=== PATIENT | male | born 1980 | race Caucasian/White ===

== ENCOUNTER 2016-11-15 16:36 | Inpatient (IN) | payer SELFPAY ==
--- NOTE | 2016-11-15 16:58 | Emergency Department Record ---
History of Present Illness - General Chief Complaint: Abdominal Pain Stated Complaint: ABD AND LOWER BACK PAIN Time Seen by Provider: 11/15/16 16:57 Source: Patient Mode of Arrival: Ambulatory Limitations: No limitations - History of Present Illness Initial Comments: The patient is here due to LLQ AP for one day. It started last evening and is a sharp cramping pain that is mainly constant. He felt like if he could have a BM the pain would go away. Today it became worse and now is radiating around to the L flank area. He denies any nausea, vomiting or diarrhea or fever. He denies similar issues in the past. The patient has had 2 hernia repairs in the L groin in the past but these symptoms are not similar. MD Complaint: Abdominal pain Onset/Timin -: Days(s) Location: LLQ Radiation: Back, LLQ Migration to: LLQ, Other Severity: Moderate Quality: Burning, Sharp Consistency: Constant Improves With: Nothing Worsens With: Movement Associated Symptoms: Denies other symptoms - Related Data Home Medications Medication Instructions Recorded Confirmed Last Taken Gabapentin [Gabapentin] 600 mg PO TID 11/15/16 11/15/16 11/15/16 Hydrocodone/Acetaminophen 1 tab PO TID 11/15/16 11/15/16 11/15/16 [Hydrocodon-Acetaminophen 5-325] Pantoprazole Sodium [Protonix] 20 mg PO DAILY 11/15/16 11/15/16 11/15/16 Allergies Allergy/AdvReac Type Severity Reaction Status Date / Time morphine Allergy Intermediate ITCHING Verified 11/15/16 17:22 Penicillins Allergy PT UNSURE Verified 11/15/16 16:48 OF REACTION Travel Screening - Travel/Exposure Within Last 30 Days Have you traveled within the last 30 days?: No Review of Systems Constitutional: Denies: Chills, Fever Eyes: Denies: Eye discharge ENT: Denies: Congestion Respiratory: Denies: Cough, Dyspnea Past Medical History - SOCIAL HISTORY Smoking Status: Current every day smoker Alcohol Use: None Drug Use: None - RESPIRATORY Hx Respiratory Disorders: No - CARDIOVASCULAR Hx Cardio Disorders: No - NEURO Hx Neuro Disorders: No - GI Hx GI Disorders: Yes Hx Reflux: Yes - Hx Genitourinary Disorders: No - ENDOCRINE Hx Endocrine Disorders: No - MUSCULOSKELETAL Hx Musculoskeletal Disorders: Yes Comment:: DDD - PSYCH Hx Psych Problems: No - HEMATOLOGY/ONCOLOGY Hx Hematology/Oncology Disorders: No Family Medical History Any Significant Family History?: Yes Family Hx Comment (NOT TO BE USED IN PLACE OF ITEMS BELOW): Father- DVTs Hx Dementia: Grandparents Hx Heart Disease: Father Physical Exam - General General Appearance: Alert, Oriented x3, Cooperative, No acute distress - Head Head exam: Atraumatic, Normocephalic, Normal inspection - Eye Eye exam: Normal appearance, PERRL - Neck Neck exam: Normal inspection, Full ROM. negative: Tenderness - Respiratory Respiratory exam: Normal lung sounds bilaterally. negative: Respiratory distress - Cardiovascular Cardiovascular Exam: Regular rate, Normal rhythm, Normal heart sounds - GI/Abdominal GI/Abdominal exam: Soft, Tenderness ( Significant LLQ tenderness but no guarding or rebound.). negative: Distended, Guarding, Rigid - exam: Circumcision, Normal inspection. negative: Testicular tenderness - Extremities Extremities exam: Normal inspection, Full ROM, Normal capillary refill. negative: Tenderness Course Vital Signs 11/15/16 16:43 Temperature 98.7 F Pulse Rate 94 H Respiratory 18 Rate Blood Pressure 109/66 Pulse Ox 97 - Reevaluation(s) Reevaluation #1: The patient is doing well at this time. He is still having some pain but feels much better, is very hungry and has no fever. I did discuss the lab and CT results with him and did discuss the Diverticulitis and the need for admission. Due to the possible microperforations I did discuss the case with Dr. Morgan and he believes the patient can stay here at [facility] for IV Abx's and pain medicines due to the fact he is very stable at this time. I then contacted Dr. Lopez and he accepted the patient for admission to [facility] and would like him on Cipro and Flagyl IV. 11/15/16 18:37 11/15/16 18:45 Medical Decision Making - Data Complexity MDM Data: Labs Ordered and/or Reviewed, X-Ray Ordered and/or Reviewed - Lab Data Result diagrams: 11/15/16 17:18 11/15/16 17:18 - Radiology Data Radiology results: Report reviewed (CT: Diverticulitis L Colon at junction between the descending and sigmoid with possible Microperforations medial wall.) Disposition Disposition: Admit Clinical Impression: Diverticulitis Qualifiers: Diverticulitis site: large intestine Diverticulitis bleeding: without bleeding Diverticulitis complication: without perforation or abscess Qualified Code(s): K57.32 - Diverticulitis of large intestine without perforation or abscess without bleeding Decision to Admit: Admit from ER Decision to Admit Date: 11/15/16 Decision to Admit Time: 18:41 Accepting Physician: Jessica Time Discussed w/Accepting Physician: 18:41 Forms: Patient Portal Access Time of Disposition: 18:41
[2016-11-15] MEDS ORDERED: ONDANSETRON HCL IV 4 MG/2 ML VIAL IV ONE (17:06)
[2016-11-15] MEDS ORDERED: 0.9 % SODIUM CHLORIDE 1,000 ML BAG IV ONE (17:06)
[2016-11-15] MEDS: MORPHINE SULFATE 5 MG/ML PFS IVP ONE ×2 (17:17→19:17)
[2016-11-15] MEDS ORDERED: HYDROMORPHONE HCL 1 MG/ML CPJ IVP ONE ×2 (17:26→18:34)
[2016-11-15 17:42] LABS: HEMATOCRIT 37.5 % (42.0-52.0); HEMOGLOBIN 12.8 gm/dl (14.0-18.0); MEAN CELL VOLUME 92.6 fl (81-97); MEAN CORPUSCULAR HEMOGLOBIN 31.6 pg (27-33); MEAN CORPUSCULAR HGB CONC 34.1 g/dl (32-36); MEAN PLATELET VOLUME 9.2 fl (7.4-10.4); PLATELET COUNT 297 K/uL (130-400); RED BLOOD COUNT 4.05 M/uL (4.40-5.70); RED CELL DISTRIBUTION WIDTH 12.9 % (11.5-14.5); WHITE BLOOD COUNT W/O DIFF 13.9 K/uL (4.2-12.2)
[2016-11-15 17:57] LABS: PLATELET ESTIMATE NORMAL (NORMAL)
[2016-11-15 18:02] LABS: ALKALINE PHOSPHATASE 99 U/L (38-126); ALT/SGPT 42 U/L (21-72); ANION GAP 7.9 (7-16); AST/SGOT 42 U/L (17-59); BLOOD UREA NITROGEN 13 mg/dL (9-20); CARBON DIOXIDE 28.1 mmol/L (22-30); EST GLOMERULAR FILTRATION RATE > 60 ml/min; GLUCOSE,RANDOM 90 mg/dL (70-110); LIPASE 24 U/L (23-300); TOTAL PROTEIN 6.8 gm/dL (6.3-8.2)
[2016-11-15] MEDS ORDERED: KETOROLAC 30 MG/ML VIAL IVP ONE (18:11)
[2016-11-15 18:13] LABS: URINE APPEARANCE CLEAR; URINE BILIRUBIN NEGATIVE (NEGATIVE); URINE BLOOD NEGATIVE (NEGATIVE); URINE COLOR YELLOW; URINE GLUCOSE (UA) NEGATIVE (NEGATIVE); URINE KETONE NEGATIVE (NEGATIVE); URINE LEUKOCYTE ESTERASE NEGATIVE (NEGATIVE); URINE NITRITE NEGATIVE (NEGATIVE); URINE PROTEIN NEGATIVE (NEGATIVE); URINE UROBILINOGEN 0.2 E.U./dL (0.20 - 1.00)
[2016-11-15] MEDS ORDERED: ERTAPENEM SODIUM 1 G in 0.9 % SODIUM CHLORIDE 100ML 100 ML IVPB ONE (18:23)
[2016-11-15] MEDS ORDERED: 0.9 % SODIUM CHLORIDE 1000ML 1,000 ML IV PRN (20:30)
[2016-11-15] MEDS: GABAPENTIN 300 MG CAPSULE PO SCH (21:47)
[2016-11-16] MEDS: CIPROFLOXACIN LACTATE/D5W 400 MG in DEXTROSE 1 BAG IVPB SCH ×3 (00:05→20:36)
[2016-11-16] MEDS: HYDROMORPHONE HCL 1 MG/ML CPJ IVP PRN ×2 (00:12→04:50)
[2016-11-16] MEDS: ONDANSETRON HCL IV 4 MG/2 ML VIAL IVP PRN ×2 (00:15→06:30)
[2016-11-16] MEDS: METRONIDAZOLE IVPB 500 MG in SODIUM CHLORIDE 1 BAG IVPB SCH ×4 (01:05→22:22)
[2016-11-16 06:48] LABS: HEMATOCRIT 38.6 % (42.0-52.0); MEAN CELL VOLUME 93.2 fl (81-97); MEAN CORPUSCULAR HEMOGLOBIN 31.4 pg (27-33); MEAN CORPUSCULAR HGB CONC 33.7 g/dl (32-36); MEAN PLATELET VOLUME 9.4 fl (7.4-10.4); PLATELET COUNT 281 K/uL (130-400); RED BLOOD COUNT 4.14 M/uL (4.40-5.70)
[2016-11-16 06:59] LABS: PLATELET ESTIMATE NORMAL (NORMAL)
--- NOTE | 2016-11-16 07:44 | CT SCAN REPORT ---
EXAM: CT OF THE ABDOMEN AND PELVIS WITHOUT CONTRAST HISTORY: ABDOMEN AND BACK PAIN FOR ONE DAY. THE PAIN IS MOST PRONOUNCED IN THE LEFT LOWER ABDOMEN. TECHNIQUE: Helical CT examination of the abdomen and pelvis was performed without oral or intravenous contrast administration. Lack of oral and IV contrast utilization limits evaluation of the bowel and solid viscera respectively. Comparison: None. FINDINGS: There are mild patchy opacities in the dependent lung bases consistent with atelectasis or less likely infiltrate. The visualized lung bases are otherwise clear and there is no pleural or pericardial effusion. The wall of the distal esophagus is borderline to mildly prominent. While this likely relates to incomplete distention, a mild mucosal abnormality cannot be excluded. The liver, spleen, pancreas, adrenal glands, and kidneys are without focal abnormality. There is borderline to mild splenomegaly. The gallbladder is contracted limiting evaluation. No calcified gallstone, gross gallbladder wall thickening or pericholecystic fluid is, however, seen. No definite intraabdominal nor retroperitoneal lymphadenopathy. There is minimal atherosclerotic calcification of the right common iliac artery. The abdominal aorta and iliac arteries are otherwise unremarkable. No pelvic mass, lymphadenopathy, or free pelvic fluid. No intrinsic urinary bladder abnormality is identified. There are post surgical changes in the left inguinal region as well as along the deep margin of the left lower quadrant abdominal wall. No gross bowel dilatation is seen. There is segmental wall thickening of the left colon centered near the junction of the descending and sigmoid portions. There is question of a small diverticulum in this region and there is mild to moderate stranding of the adjacent mesenteric fat. These findings are suspicious for acute diverticulitis. A tiny amount of gas is noted along the medial margin of this inflamed segment with microperforation not excluded. No abscess is seen. No lytic or blastic bone lesion identified. IMPRESSION: 1. SEGMENTAL INFLAMMATORY CHANGES OF THE LEFT COLON AT THE JUNCTION OF THE DESCENDING AND SIGMOID PORTIONS WITH PROBABLE UNDERLYING DIVERTICULOSIS. THESE FINDINGS ARE CONSISTENT WITH ACUTE DIVERTICULITIS AND THERE IS INFLAMMATORY CHANGE IN THE ADJACENT MESENTERY. TINY COLLECTIONS OF GAS ARE NOTED IN THIS REGION ALONG THE MEDIAL MARGIN OF THE INFLAMED SEGMENT AND WHILE THESE MAY RELATE TO GAS WITHIN DIVERTICULA, MICROPERFORATION CANNOT BE EXCLUDED. NO ABSCESS. 2. BORDERLINE TO MILD SPLENOMEGALY. 3. MINOR PATCHY OPACITIES WITHIN THE DEPENDENT LUNG BASES CONSISTENT WITH ATELECTASIS OR LESS LIKELY INFILTRATE. 4. BORDERLINE TO MILD WALL THICKENING OF THE DISTAL ESOPHAGUS, DISCUSSED ABOVE. JOB NUMBER: [id number] [facility]
[2016-11-16] MEDS: HYDROCODONE/APAP 7.5/325MG TABLET PO PRN ×2 (09:14→15:00)
[2016-11-16] MEDS: PANTOPRAZOLE SODIUM 40 MG TABLET PO SCH (11:01)
[2016-11-16] MEDS: GABAPENTIN 300 MG CAPSULE PO SCH ×3 (11:01→22:23)
--- NOTE | 2016-11-16 17:14 | History and Physical Report ---
DATE OF ADMISSION: 11/16/2016 TIME: 10:18 a.m. CHIEF COMPLAINT: Abdominal pain left lower quadrant. HISTORY OF PRESENT ILLNESS: This 36-year-old male presented to the emergency department stating he had left lower quadrant abdominal pain that started 24 hours prior to admission. He came into the emergency room yesterday about 5 p.m. He described the pain as a cramping-type pain, denied any trauma. He had a bowel movement, the pain did not go away, the pain was radiating into his left flank. He denied any nausea, vomiting, or diarrhea, or fever. He denies having a similar pain in the past. He does have chronic neck, shoulder, and back pain. He used Stites for his chronic musculoskeletal pain. PAST SURGICAL HISTORY: Previous abdominal surgeries. He had 2 hernia surgeries in the left groin and 1 in the right groin, and pyloric stenosis as a baby, and a screw put in his left foot. His last hernia repair was about 2 years ago. The patient was evaluated in the emergency department by Dr. Norris and diagnosed with acute diverticulitis. CAT scan revealing signs of diverticulitis and micro perforations. 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 His primary doctor is Dr. Hoyt out of [place]. MEDICATIONS ON ADMISSION: 1. Protonix 20 mg daily. 2. Stites 5 mg 1 tablet t.i.d. 3. Gabapentin 600 mg t.i.d. ALLERGIES: MORPHINE AND PENICILLIN. He described his MORPHINE as just an itching reaction. He is unsure of the PENICILLIN reaction. SOCIAL HISTORY: He smokes 1 pack a day. He denies any drug use or alcohol use. FAMILY PSYCHOSOCIAL HISTORY: Father had heart disease. Father had a DVT. REVIEW OF SYSTEMS: HEENT: No upper respiratory infections symptoms, cough, cold, or congestion. CARDIOVASCULAR: No chest pain, palpitations, arrhythmias. RESPIRATORY: No cough, cold, or congestion. GASTROINTESTINAL: See chief complaint. He denied any nausea, vomiting, or diarrhea, but he has left lower quadrant abdominal pain. No dysphagia, no blood in his stools. GENITOURINARY: No dysuria, hematuria, or frequency or burning on urination. MUSCULOSKELETAL: He has chronic neck and right shoulder pain. He uses narcotics and gabapentin for that. NEUROLOGIC: No CVA, paralysis, or paresthesias. The patient has migraine headaches. ENDOCRINE: No diabetes or thyroid disease. INTEGUMENT: No rash, ulcer, change in moles, or yellow skin. The patient has multiple tattoos on his body. PHYSICAL EXAMINATION: GENERAL: Height is 5 feet 8 inches. Weight is 150 pounds. VITAL SIGNS: Temperature is 96.3, pulse is 60, blood pressure is 110/50, respiratory rate is 16, pulse oximetry is 98% on room air. HEENT: Pupils are equal, round, and reactive to light and accomodation. Extraocular muscles intact. Throat is clear. Nose is clear. Tympanic membranes are peterson. NECK: Supple. No jugular venous distention, no hepatojugular reflux, no carotid bruits. Thyroid is smooth. CARDIOVASCULAR: Regular rate and rhythm without murmurs, clicks, rubs, or gallops. RESPIRATORY: Clear to auscultation and percussion. ABDOMEN: Soft and painful in the left lower quadrant, no rebound or rigidity. He states the pain is better than it was last night. EXTREMITIES: No pitting edema, no cyanosis, no clubbing. Full range of motion, peripheral pulses are good. BREASTS: Normal male breasts. RECTAL: Deferred. NEUROLOGIC: Cranial nerves II through XII intact. No gross defects. Sensation normal, normal strength, deep tendon reflexes equal bilaterally. Babinski's negative. MENTAL STATUS: Alert and oriented x 3. IMPRESSION: 1. Acute diverticulitis. 2. Left lower quadrant abdominal pain, because of the above. 3. History of chronic migraines. 4. History of chronic neck and right shoulder pain. PLAN: Continue IV Flagyl, IV Cipro. Pain control with Dilaudid and Stites. Dr. Morgan was consulted by phone yesterday through the emergency department. If the patient got worse, he would be willing to come and see the patient. SAUD
[2016-11-16] MEDS: SIMETHICONE 80 MG TAB.CHEW PO PRN (20:55)
[2016-11-17] MEDS: HYDROCODONE/APAP 7.5/325MG TABLET PO PRN ×3 (00:17→11:51)
[2016-11-17] MEDS: METRONIDAZOLE IVPB 500 MG in SODIUM CHLORIDE 1 BAG IVPB SCH (05:08)
[2016-11-17] MEDS: PANTOPRAZOLE SODIUM 40 MG TABLET PO SCH (06:11)
[2016-11-17] MEDS: CIPROFLOXACIN LACTATE/D5W 400 MG in DEXTROSE 1 BAG IVPB SCH (07:36)
[2016-11-17] MEDS: GABAPENTIN 300 MG CAPSULE PO SCH (09:39)
[2016-11-17] MEDS: SIMETHICONE 80 MG TAB.CHEW PO PRN (09:39)
--- NOTE | 2016-11-17 10:48 | Discharge Note ---
VTE H&P Assessment - Risk for VTE Risk for VTE: Yes Risk Level: Moderate Risk Assessment Date: 11/16/16 Risk Assessment Time: 09:30 VTE Orders Placed or Will Be Placed: Yes Discharge Medications - Discharge Medications Home Medications: Ambulatory Orders Gabapentin 600 mg PO TID 11/15/16 [Last Taken 11/15/16] Hydrocodone/Acetaminophen [Hydrocodon-Acetaminophen 5-325] 1 tab PO TID [Last Taken 11/15/16] Pantoprazole Sodium [Protonix] 20 mg PO DAILY 11/15/16 [Last Taken 11/15/16] Ciprofloxacin HCl [Cipro] 500 mg PO Q12HR #20 tablet 11/17/16 [Last Taken Unknown] Hydrocodone/Acetaminophen [[place] 5mg/325mg] 1 tab PO Q6H PRN #6 tab 11/17/16 [ Last Taken Unknown] Metronidazole [Flagyl] 500 mg PO Q8HR #30 tablet 11/17/16 [Last Taken Unknown] Discharge Note - Date Date of Discharge Note: 11/17/16 Disposition: Home, Self-Care Condition: (1) Good Additional Instructions: follow up with Dr. Barbosa his primary Dr in 2 to 6 days low fiber diet for one month and than high fiber diet Prescriptions: Metronidazole [Flagyl] 500 mg PO Q8HR #30 tablet Ciprofloxacin HCl [Cipro] 500 mg PO Q12HR #20 tablet Hydrocodone/Acetaminophen [[place] 5mg/325mg] 1 tab PO Q6H PRN #6 tab PRN Reason: Pain - General Forms: Patient Portal Access
--- NOTE | 2016-11-19 12:58 | Discharge Summary ---
DATE OF ADMISSION: 11/15/2016 DATE OF DISCHARGE: 11/17/2016 Attending physician: Shiva Lopez, DISCHARGE DIAGNOSES: 1. Acute diverticulitis. 2. Headache resolved. 3. History of migraines. 4. History of chronic neck and right shoulder pain, using narcotics, at [place] 5 mg 3 times a day. REASON FOR HOSPITALIZATION: Abdominal pain left lower quadrant. This 36-year-old male presented to the emergency department stating he had left lower quadrant abdominal pain that started 24 hours prior to admission. He came into the emergency room about 5 p.m. on the day of admission. He described the pain as cramping-type pain, he denied any trauma. He had a bowel movement, but the pain did not go away. The pain was radiating to the left flank. He denies any nausea, vomiting, diarrhea, or fever. He denies any similar pain in the past. He does have chronic neck and shoulder pain and back pain, which he uses [place] 3 times a day for that. He was evaluated in the emergency department by Dr. Subrmaanian with a diagnosis of acute diverticulitis. He was admitted to the hospital; IV antibiotics and IV fluids and pain control. SIGNIFICANT FINDINGS FROM EXAMINATION: CT of the abdomen and pelvis without contrast revealed segmental inflammatory changes in the left colon and conjunction of the descending and sigmoid portion with probable underlying diverticulosis. These findings are consistent with acute diverticulitis and there is inflammatory change in the adjacent mesentery. A tiny collection of gas is noted in this region, along the medial margin of the inflamed segment, and while these may relate to gas within the diverticula, micro perforation could not be excluded. No abscesses were seen. LABORATORY: The initial WBC was 16,900, it went up to 16,000 the next day. His electrolytes were normal, lipase was normal, urine was negative. THERAPY PROVIDED: The patient was given IV 1 gram of Invanz in the emergency department and switched over to Cipro and Flagyl; Cipro is 400 mg twice a day and Flagyl 500 mg every 8 hours, and on the day of discharge switched to oral medications. Response to the therapy was much better, there is a little bit of pain on palpation in the left lower quadrant. He is eating a soft diet and would like to go home. No vomiting, and the pain is much more controlled. HOSPITAL COURSE: Improved. CONDITION AT DISCHARGE: Improved. DISCHARGE INSTRUCTIONS: 1. Follow up with his primary care doctor, Dr. Hoyt, in 2 to 6 days. 2. Low fiber diet for 1 month, then go to a high fiber diet. OUTPATIENT MEDICATIONS: 1. Cipro 500 mg 1 b.i.d. for 10 days. 2. Flagyl 500 mg t.i.d. for 10 days. 3. [place] 5 mg t.i.d., 6 pills were prescribed. He said he was supposed to go to his primary doctor to refill his medication on Saturday, but because he was in the hospital, he missed that appointment. I will give him 6 pills so that he can get to his primary doctor on Saturday or Saturday to get his medications and be rechecked for his diverticulitis. SAUD
== END 2016-11-17 12:07 | disposition home or self-care (01) | DRG 392 ==
LOC: ER 16:36 → MEDSURG 20:22
PROVIDERS: ADMIT Emergency Medicine; ATTEND Emergency Medicine
DX: K57.32 Diverticulitis of large intestine without perforation or abscess without bleeding (principal); M25.511 Pain in right shoulder; M54.2 Cervicalgia; G43.909 Migraine, unspecified, not intractable, without status migrainosus
CPT/HCPCS: 74176; 80048; 80076; 81003; 83690; 85027; 96365; 96375; 96376; 99223; 99233; 99239; 99285; J1170; J1885; J2405; J7030

== ENCOUNTER 2017-03-20 23:26 | Emergency (ER) | payer SELFPAY ==
--- NOTE | 2017-03-20 23:39 | Emergency Department Record ---
History of Present Illness - General Stated complaint: POISON JESSICA Time Seen by Provider: 03/20/17 23:33 Source: Patient Mode of Arrival: Ambulatory Limitations: No limitations - History of Present Illness Initial comments: 37 yo male presents with a rash CW poison jessica since Saturday. He was out working in the [employer] this weekend. His rash is on his arms, legs, abdomen. No fevers or chills. No other current symptoms. He is not a diabetic. MD complaint: Rash -: Days(s) (5) Location: Generalized Severity: Moderate Quality: Other (itches) Consistency: Constant Improves with: None Worsens with: None Context: Other (working in the [employer]) Associated symptoms: Denies other symptoms Treatments Prior to Arrival: None - Related Data Home Medications Medication Instructions Recorded Confirmed Last Taken Gabapentin 600 mg PO TID 11/15/16 03/20/17 11/15/16 Hydrocodone/Acetaminophen 1 tab PO TID 11/15/16 03/20/17 11/15/16 [Hydrocodon-Acetaminophen 5-325] Pantoprazole Sodium [Protonix] 20 mg PO DAILY 11/15/16 03/20/17 11/15/16 Previous Rx's Medication Instructions Recorded Prednisone [Prednisone 20Mg] 20 mg PO BID #14 tab 03/20/17 Allergies Allergy/AdvReac Type Severity Reaction Status Date / Time morphine Allergy Intermediate ITCHING Verified 11/15/16 17:22 Penicillins Allergy PT UNSURE Verified 11/15/16 16:48 OF REACTION hydromorphone [From Dilaudid] AdvReac HEADACHE Verified 03/20/17 23:41 Review of Systems Constitutional: Denies: Chills, Fever, Malaise Eyes: Denies: Eye discharge, Vision change ENT: Denies: Congestion, Throat pain Respiratory: Denies: Cough, Dyspnea, Hemoptysis, Wheezes Cardiovascular: Denies: Chest pain Endocrine: Denies: Fatigue Gastrointestinal: Denies: Abdominal pain, Diarrhea, Nausea, Vomiting Genitourinary: Denies: Dysuria, Frequency, Hematuria Musculoskeletal: Denies: Arthralgia, Back pain, Neck pain Skin: Reports: As per HPI, Change in color, Rash. Denies: Bruising Neurological: Denies: Headache, Weakness Psychiatric: Denies: Anxiety Hematological/Lymphatic: Denies: Blood Clots, Easy bleeding, Easy bruising, Swollen glands Past Medical History - SOCIAL HISTORY Smoking Status: Current every day smoker Drug Use: None - RESPIRATORY Hx Respiratory Disorders: No - CARDIOVASCULAR Hx Cardio Disorders: No - NEURO Hx Neuro Disorders: Yes Hx Neuropathy: Yes (pinched nerve-right neck) - GI Hx GI Disorders: Yes Hx Reflux: Yes - Hx Genitourinary Disorders: No - ENDOCRINE Hx Endocrine Disorders: No - MUSCULOSKELETAL Hx Musculoskeletal Disorders: Yes Comment:: DJD-hand,back,patrick markseck - PSYCH Hx Psych Problems: No - HEMATOLOGY/ONCOLOGY Hx Hematology/Oncology Disorders: No Family Medical History Family Hx Comment (NOT TO BE USED IN PLACE OF ITEMS BELOW): Father- DVTs Hx Dementia: Grandparents Hx Heart Disease: Father, Mother Physical Exam - General General Appearance: Alert, Oriented x3, Cooperative, No acute distress Limitations: No limitations - Head Head exam: Normal inspection - Eye Eye exam: Normal appearance - ENT ENT exam: Normal exam Ear exam: Normal external inspection Nasal Exam: Normal inspection Mouth exam: Normal external inspection Teeth exam: Normal inspection - Neck Neck exam: Normal inspection, Full ROM. negative: Tenderness - Respiratory Respiratory exam: Normal lung sounds bilaterally. negative: Respiratory distress - Rectal Rectal exam: Deferred - exam: Deferred - Extremities Extremities exam: negative: Normal inspection - Back Back exam: Denies: Normal inspection - Neurological Neurological exam: Alert, Oriented X3 - Psychiatric Psychiatric exam: negative: Agitated, Anxious - Skin Skin exam: Rash Type of lesion: Rash Distribution of rash: Abdomen, Back, RUE, LUE, RLE, LLE Description of rash: Macular, Papular Course - Reevaluation(s) Reevaluation #1: Well appearing male Rash is CW contact dermatitis 03/20/17 23:36 Disposition Disposition: Discharge Clinical Impression: Poison jessica Disposition: Home, Self-Care Condition: (1) Good Instructions: Poison Jessica (ED) Additional Instructions: Return if you have any worsening of symptoms or new concerns Take the Prednisone until it is gone Prescriptions: Prednisone [Prednisone 20Mg] 20 mg PO BID #14 tab Time of Disposition: 23:37 Quality - Quality Measures Quality Measures: N/A - Blood Pressure Screening View Details: Yes Does Patient Have Any of the Following: No Blood Pressure Classification: Normal BP Reading Systolic Measurement: 110 Diastolic Measurement: 64 Screening for High Blood Pressure: < Normal BP, F/U Not Required > [G8783]
[2017-03-20] MEDS: PREDNISONE 20 MG TAB PO ONE (23:42)
== END 2017-03-20 23:54 | disposition home or self-care (01) ==
LOC: ER 23:26
DX: L23.7 Allergic contact dermatitis due to plants, except food (principal)
CPT/HCPCS: 99282; J7512

== ENCOUNTER 2018-01-19 22:43 | Emergency (ER) | payer MEDICAID ==
--- NOTE | 2018-01-19 23:42 | Emergency Department Record ---
History of Present Illness - General Chief Complaint: Abdominal Pain Stated Complaint: L SIDE PAIN/HERNIA Time Seen by Provider: 01/19/18 23:22 Source: Patient Mode of Arrival: Ambulatory - History of Present Illness Initial Comments: The patient states that he is having left inguinal pain which intermittently shoots down in a brief sharp manner into his left testicle. He has had multiple surgeries for inguinal hernias, the first ones were bilateral when he was a teenager. The most recent one was on the left side, at end of October of this year and done by Dr. Morgan. He states after that surgery he had some sharp pains shooting up into his left side on and off but those pains have resolved. He states his testicles are not tender, and he has no urinary symptoms, no fevers, chills, abdominal pain, or other complaints. 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 Onset/Timin -: Days(s) Radiation: None Quality: Aching Consistency: Constant Improves With: Nothing Worsens With: Nothing - Related Data Allergies Allergy/AdvReac Type Severity Reaction Status Date / Time morphine Allergy Intermediate ITCHING Verified 11/15/16 17:22 Penicillins Allergy PT UNSURE Verified 11/15/16 16:48 OF REACTION hydromorphone [From Dilaudid] AdvReac HEADACHE Verified 03/20/17 23:41 Travel Screening - Travel/Exposure Within Last 30 Days Have you traveled within the last 30 days?: No Review of Systems Reviewed: No additional complaints except as noted below Constitutional: Reports: As per HPI. Denies: Chills, Fever, Malaise, Night sweats, Weakness, Weight change Eyes: Reports: As per HPI. Denies: Eye discharge, Eye pain, Photophobia, Vision change ENT: Reports: As per HPI. Denies: Congestion, Dental pain, Ear pain, Epistaxis , Hearing loss, Throat pain Respiratory: Reports: As per HPI. Denies: Cough, Dyspnea, Hemoptysis, Stridor, Wheezes Cardiovascular: Reports: As per HPI. Denies: Arrhythmia, Chest pain, Dyspnea on exertion, Edema, Murmurs, Orthopnea, Palpitations, Paroxysmal nocturnal dyspnea, Rheumatic Fever, Syncope Endocrine: Reports: As per HPI. Denies: Fatigue, Heat or cold intolerance, Polydipsia, Polyuria Gastrointestinal: Reports: As per HPI. Denies: Abdominal pain, Constipation, Diarrhea, Hematemesis, Hematochezia, Melena, Nausea, Vomiting Genitourinary: Reports: As per HPI. Denies: Dysuria, Frequency, Hematuria, Incontinence, Retention, Testicular pain, Testicular mass, Urgency Musculoskeletal: Reports: As per HPI. Denies: Arthralgia, Back pain, Gout, Joint swelling, Myalgia, Neck pain Skin: Reports: As per HPI. Denies: Bruising, Change in color, Change in hair/ nails, Lesions, Pruritus, Rash Neurological: Reports: As per HPI. Denies: Abnormal gait, Confusion, Headache, Numbness, Paresthesias, Seizure, Tingling, Tremors, Vertigo, Weakness Psychiatric: Reports: As per HPI. Denies: Anxiety, Auditory hallucinations, Depression, Homicidal thoughts, Suicidal thoughts, Visual hallucinations Hematological/Lymphatic: Reports: As per HPI. Denies: Anemia, Blood Clots, Easy bleeding, Easy bruising, Swollen glands Past Medical History - SOCIAL HISTORY Smoking Status: Current every day smoker Alcohol Use: None Drug Use: None - RESPIRATORY Hx Respiratory Disorders: No - CARDIOVASCULAR Hx Cardio Disorders: No - NEURO Hx Neuro Disorders: Yes Hx Neuropathy: Yes (pinched nerve-right neck) - GI Hx GI Disorders: Yes Hx Reflux: Yes - Hx Genitourinary Disorders: No - ENDOCRINE Hx Endocrine Disorders: No - MUSCULOSKELETAL Hx Musculoskeletal Disorders: Yes Comment:: DJD-hand,back,rshoulder,rneck - PSYCH Hx Psych Problems: No - HEMATOLOGY/ONCOLOGY Hx Hematology/Oncology Disorders: No Family Medical History Any Significant Family History?: Yes Family Hx Comment (NOT TO BE USED IN PLACE OF ITEMS BELOW): Father- DVTs Hx Dementia: Grandparents Hx Heart Disease: Father, Mother Physical Exam - General General Appearance: Alert, Oriented x3, Cooperative, No acute distress - Head Head exam: Normal inspection - Eye Eye exam: Normal appearance, PERRL Pupils: Normal accommodation - ENT ENT exam: Normal exam, Mucous membranes moist, Normal external ear exam, Normal orophraynx, TM's normal bilaterally Ear exam: Normal external inspection. negative: External canal tenderness Nasal Exam: Normal inspection. negative: Discharge, Sinus tenderness Mouth exam: Normal external inspection, Tongue normal Teeth exam: Normal inspection. negative: Dental caries Throat exam: Normal inspection. negative: Tonsillar erythema, Tonsillar exudate - Neck Neck exam: Normal inspection, Full ROM. negative: Lymphadenopathy, Tenderness - Respiratory Respiratory exam: Normal lung sounds bilaterally, Other (rare end ex piratory wheeze). negative: Respiratory distress - Cardiovascular Cardiovascular Exam: Regular rate, Normal rhythm, Normal heart sounds - GI/Abdominal GI/Abdominal exam: Soft, Normal bowel sounds. negative: Tenderness - Rectal Rectal exam: Deferred - exam: Normal inspection, Other (normal testicular nontender exam, the only tenderness if over the old surgical incision in the left inguinal region. There is a tender firm point on the incision which triggers the painof his chief complaint.). negative: Circumcision, Scrotal swelling, Testicular tenderness, Urethral discharge, Vertical testicular lie - Extremities Extremities exam: Normal inspection, Full ROM, Normal capillary refill. negative: Tenderness - Back Back exam: Reports: Normal inspection, Full ROM. Denies: Muscle spasm, Rash noted, Tenderness - Neurological Neurological exam: Alert, Normal gait, Oriented X3, Reflexes normal - Psychiatric Psychiatric exam: Normal affect, Normal mood - Skin Skin exam: Dry, Intact, Normal color, Warm Course Vital Signs 01/19/18 22:56 Temperature 98.7 F Pulse Rate [ 80 Pulse Ox Probe] Respiratory 20 Rate Blood Pressure 103/64 [Left Arm] Pulse Ox 99 - Reevaluation(s) Reevaluation #1: Patient is in agreement with follow up [facility] with Dr. Morgan. 01/19/18 23:58 Medical Decision Making - Management Options MDM Management: Additional Work-up Planned (e.g. ADM/Transfer/OP Study) ( [facility] consult Dr. Morgan.) - Data Complexity MDM Data: Labs Ordered and/or Reviewed (UA: Neg) Disposition Disposition: Discharge Clinical Impression: Inguinal tenderness, History of inguinal hernia repair Disposition: Home, Self-Care Condition: (1) Good Instructions: Inguinal Hernia (ED), Groin Pain (ED) Additional Instructions: Follow up with Dr. Morgan in [facility] tomorrow as instructed. No lifting bending twisting until seen by Dr. Morgan. Tylenol or ibuprofen as directed as needed for pain. Referrals: Eldon Morgan [DOCTOR OF OSTEOPATH] - Quality - Quality Measures Quality Measures: N/A - Blood Pressure Screening Does Patient Have Any of the Following: No Blood Pressure Classification: Normal BP Reading Systolic Measurement: 103 Diastolic Measurement: 64 Screening for High Blood Pressure: < Normal BP, F/U Not Required > [G8760]
[2018-01-19 23:48] LABS: URINE APPEARANCE CLEAR; URINE BILIRUBIN NEGATIVE (NEGATIVE); URINE BLOOD NEGATIVE (NEGATIVE); URINE COLOR YELLOW; URINE GLUCOSE (UA) NEGATIVE (NEGATIVE); URINE KETONE NEGATIVE (NEGATIVE); URINE LEUKOCYTE ESTERASE NEGATIVE (NEGATIVE); URINE NITRITE NEGATIVE (NEGATIVE); URINE PROTEIN NEGATIVE (NEGATIVE); URINE UROBILINOGEN 0.2 E.U./dL (0.20 - 1.00)
== END 2018-01-20 00:18 | disposition home or self-care (01) ==
LOC: ER 22:43
DX: K40.91 Unilateral inguinal hernia, without obstruction or gangrene, recurrent (principal); F17.210 Nicotine dependence, cigarettes, uncomplicated; R10.30 Lower abdominal pain, unspecified
CPT/HCPCS: 81003; 99282

== ENCOUNTER 2018-02-15 23:12 | Emergency (ER) | payer MEDICAID ==
[2018-02-15] MEDS ORDERED: KETOROLAC 30 MG/ML VIAL IVP ONE (23:37)
[2018-02-15] MEDS ORDERED: 0.9 % SODIUM CHLORIDE 1,000 ML BAG IV ONE (23:37)
[2018-02-15] MEDS ORDERED: PROMETHAZINE HCL 25 MG in 0.9 % SODIUM CHLORIDE 100ML 100 ML IVPB ONE (23:37)
[2018-02-15] MEDS ORDERED: ORPHENADRINE CITRATE 60MG/2ML VIAL IM ONE (23:38)
--- NOTE | 2018-02-16 00:12 | Emergency Department Record ---
History of Present Illness - General Chief Complaint: Headache Migraine Stated Complaint: HEADACH,N/V Time Seen by Provider: 02/15/18 23:22 Source: Patient Mode of Arrival: Ambulatory Limitations: No limitations - History of Present Illness Initial Comments: pt is having his typical migraine but he cant get it to break. he states that it has flared up because he is getting physical therapy on his neck and it has bad discs and muscle spasms. he has pain that radiates down his r arm from his neck. he hasn/v x 4. MD Complaint: "Migraine" Onset/Timin -: Days(s) Onset Description: Gradual Location: Neck, Retro-orbital Severity: Severe Severity scale (1-10): 9 Quality: Similar to previous headaches Consistency: Constant Improves With: Nothing Worsens With: Exertion/activity, Light, Movement of head/neck Context: Close contacts with similar symptoms Associated Symptoms: Nausea, Photophobia, Tingling/numbness, Vomiting Other Symptoms: Eye pain/redness Treatments Prior to Arrival: Acetaminophen, Ibuprofen, Prescription analgesic - Related Data Allergies Allergy/AdvReac Type Severity Reaction Status Date / Time morphine Allergy Intermediate ITCHING Verified 11/15/16 17:22 Penicillins Allergy PT UNSURE Verified 11/15/16 16:48 OF REACTION hydromorphone [From Dilaudid] AdvReac HEADACHE Verified 03/20/17 23:41 Travel Screening - Travel/Exposure Within Last 30 Days Have you traveled within the last 30 days?: No - Travel Symptoms Symptom Screening: Headache, Joint & Muscle Aches, Vomiting Review of Systems Reviewed: No additional complaints except as noted below Constitutional: Reports: As per HPI. Denies: Chills, Fever, Malaise, Night sweats, Weakness, Weight change Eyes: Reports: As per HPI. Denies: Eye discharge, Eye pain, Photophobia, Vision change ENT: Reports: As per HPI. Denies: Congestion, Dental pain, Ear pain, Epistaxis , Hearing loss, Throat pain Respiratory: Reports: As per HPI. Denies: Cough, Dyspnea, Hemoptysis, Stridor, Wheezes Cardiovascular: Reports: As per HPI. Denies: Arrhythmia, Chest pain, Dyspnea on exertion, Edema, Murmurs, Orthopnea, Palpitations, Paroxysmal nocturnal dyspnea, Rheumatic Fever, Syncope Endocrine: Reports: As per HPI. Denies: Fatigue, Heat or cold intolerance, Polydipsia, Polyuria Gastrointestinal: Reports: As per HPI, Nausea, Vomiting. Denies: Abdominal pain , Constipation, Diarrhea, Hematemesis, Hematochezia, Melena Genitourinary: Reports: As per HPI. Denies: Dysuria, Frequency, Hematuria, Incontinence, Retention, Testicular pain, Testicular mass, Urgency Musculoskeletal: Reports: As per HPI, Neck pain. Denies: Arthralgia, Back pain , Gout, Joint swelling, Myalgia Skin: Reports: As per HPI. Denies: Bruising, Change in color, Change in hair/ nails, Lesions, Pruritus, Rash Neurological: Reports: As per HPI, Headache. Denies: Abnormal gait, Confusion, Numbness, Paresthesias, Seizure, Tingling, Tremors, Vertigo, Weakness Psychiatric: Reports: As per HPI. Denies: Anxiety, Auditory hallucinations, Depression, Homicidal thoughts, Suicidal thoughts, Visual hallucinations Hematological/Lymphatic: Reports: As per HPI. Denies: Anemia, Blood Clots, Easy bleeding, Easy bruising, Swollen glands Past Medical History - SOCIAL HISTORY Smoking Status: Current every day smoker Alcohol Use: Rare Drug Use: Rare Drug Use Detail:: Marijuana - RESPIRATORY Hx Respiratory Disorders: No - CARDIOVASCULAR Hx Cardio Disorders: No - NEURO Hx Neuro Disorders: Yes Hx Neuropathy: Yes (pinched nerve-right neck) - GI Hx GI Disorders: Yes Hx Reflux: Yes - Hx Genitourinary Disorders: No - ENDOCRINE Hx Endocrine Disorders: No - MUSCULOSKELETAL Hx Musculoskeletal Disorders: Yes Comment:: DJD-hand,back,rshoulder,rneck - PSYCH Hx Psych Problems: No - HEMATOLOGY/ONCOLOGY Hx Hematology/Oncology Disorders: No Family Medical History Any Significant Family History?: Yes Family Hx Comment (NOT TO BE USED IN PLACE OF ITEMS BELOW): Father- DVTs Hx Dementia: Grandparents Hx Heart Disease: Father, Mother Physical Exam - General General Appearance: Alert, Oriented x3, Cooperative, Mild distress - Head Head exam: Normal inspection - Eye Eye exam: Normal appearance, PERRL, EOMI Pupils: Normal accommodation - ENT ENT exam: Normal exam, Mucous membranes moist, Normal external ear exam, Normal orophraynx Ear exam: Normal external inspection. negative: External canal tenderness Nasal Exam: Normal inspection. negative: Discharge, Sinus tenderness Mouth exam: Normal external inspection, Tongue normal Teeth exam: Normal inspection. negative: Dental caries Throat exam: Normal inspection. negative: Tonsillar erythema, Tonsillar exudate - Neck Neck exam: Full ROM, Tenderness - Respiratory Respiratory exam: Normal lung sounds bilaterally. negative: Respiratory distress - Cardiovascular Cardiovascular Exam: Regular rate, Normal rhythm, Normal heart sounds - GI/Abdominal GI/Abdominal exam: Soft, Normal bowel sounds. negative: Tenderness - Rectal Rectal exam: Deferred - exam: Deferred - Extremities Extremities exam: Normal inspection, Full ROM, Normal capillary refill. negative: Tenderness - Back Back exam: Reports: Normal inspection, Full ROM. Denies: Muscle spasm, Rash noted, Tenderness - Neurological Neurological exam: Alert, CN II-XII intact, Normal gait, Oriented X3 - Psychiatric Psychiatric exam: Normal affect, Normal mood - Skin Skin exam: Dry, Intact, Normal color, Warm Course Vital Signs 02/15/18 23:19 Temperature 98.4 F Pulse Rate 104 H Respiratory 18 Rate Blood Pressure 130/86 Pulse Ox 100 - Reevaluation(s) Reevaluation #1: 02/16/18 00:44 pt feels better Disposition Disposition: Discharge Clinical Impression: Migraine Qualifiers: Migraine type: unspecified Status migrainosus presence: with status migrainosus Intractability: not intractable Qualified Code(s): G43.901 - Migraine, unspecified, not intractable, with status migrainosus Disposition: Home, Self-Care Condition: (1) Good Instructions: Migraine Headache (ED) Additional Instructions: follow up with family doctor. return sooner if worse Forms: Patient Portal Access Quality - Quality Measures Quality Measures: Headache (All Ages) - Headache: Neuroimaging Quality Measure: Measure #419: Overuse of Neuroimaging Neurological Exam: Patient had a normal neurological exam. [G9535] Headache: Use of Neuroimaging: < CTA, CT, MRA or MRI was NOT ordered > [G9534] - Blood Pressure Screening Does Patient Have Any of the Following: No Blood Pressure Classification: Pre-Hypertensive BP Reading Systolic Measurement: 130 Diastolic Measurement: 86 Screening for High Blood Pressure: < Pre-Hypertensive BP, F/U Documented > [ G8950] Pre-Hypertensive Follow-up Interventions: Follow-up with rescreen every year.
== END 2018-02-16 00:57 | disposition home or self-care (01) ==
LOC: ER 23:12
DX: G43.901 Migraine, unspecified, not intractable, with status migrainosus (principal); R11.2 Nausea with vomiting, unspecified; M54.2 Cervicalgia; H53.149 Visual discomfort, unspecified; R20.0 Anesthesia of skin; F17.210 Nicotine dependence, cigarettes, uncomplicated
CPT/HCPCS: 99284 ×2; 96372; 96365; 96375; J1885; J2360; J2550; J7030